=== PATIENT | female | born 1995 | race Caucasian/White ===

== ENCOUNTER → 2018-04-07 | Outpatient (CLI) | payer BC ==
[2018-04-07 10:22] LABS: BASO % 0.6 % (0.0-2.0); EOS # 0.1 (0.0-0.7); EOS % 1.6 % (0-4.0); GRAN # 4.3 (1.4-6.5); GRAN % 63.4 % (42.2-75.2); HEMATOCRIT 39.3 % (35.0-45.0); HEMOGLOBIN 13.9 g/dl (12.0-15.0); LYMPH # 1.8 (1.2-3.4); LYMPH % 26.8 % (20.0-51.0); MEAN CELL VOLUME 82 fl (80.0-95.0); MEAN CORPUSCULAR HEMOGLOBIN 29 pg (26.0-32.0); MEAN CORPUSCULAR HGB CONC 35 g/dl (33.0-37.0); MEAN PLATELET VOLUME 10.1 fl (7.4-10.4); MONO # 0.5 (0.1-0.6); MONO % 7.3 % (1.7-9.3); PLATELET COUNT 267 K/mm3 (130-400); RED BLOOD COUNT 4.82 M/mm3 (4.10-5.30)
[2018-04-07 10:33] LABS: ALBUMIN 4.2 gm/dL (3.5-5.0); BILIRUBIN,TOTAL 0.6 mg/dL (0.0-1.0); CALCIUM 9.6 mg/dL (8.4-10.2); CREATININE, serum 0.93 mg/dL (0.52-1.25); POTASSIUM 4.2 mmol/L (3.4-5.0); TOTAL PROTEIN 8.2 gm/dL (6.4-8.2)
== END ==
LOC: COL.LAB 09:29
DX: Z01.812 Encounter for preprocedural laboratory examination (principal); M67.40 Ganglion, unspecified site

== ENCOUNTER 2023-02-04 20:05 | Outpatient (CLI) | payer BC ==
[~2023-02-04] VITALS: Ht 167.6 cm; Wt 100.9 kg
--- NOTE | 2023-02-04 20:10 | NUR ---
G1L0. 39.6. Ambulatory to LDR 3 with spouse. Clean gown on. EFM and TOCO explained and applied. Pt states she has a gush of clear fluid around 1600 today and has had some leaking since but has not filled a pad. Denies contractions or vaginal bleeding. Reports good movement. Plan of care explained. 2019: SVE 2/80/-2, Bulgy bag noted on exam. Amniotrace X2 negative. Clear discharge noted. [place] pad applied. 2054: No fluid noted to pink pad. Amniotrace negative. 2099: called and notified of pt's status. See physican notification. Discharge orders received. 2119: Discharge orders explained. Questions answered. Pt ambualtory off unit and home with spouse.
[2023-02-04] MEDS ORDERED: PROTONIX20 MG PO (20:26)
[2023-02-04 20:35] VITALS: BP 126/90; PULSE 74
[2023-02-04 20:45] VITALS: BP 141/93; PULSE 67; TEMP 98.6
[2023-02-04 21:01] VITALS: BP 130/90; PULSE 68
== END 2023-02-04 21:20 | disposition home or self-care (01) ==
LOC: LDRO 20:05
DX: Z34.93 Encounter for supervision of normal pregnancy, unspecified, third trimester (principal); Z3A.39 39 weeks gestation of pregnancy

== ENCOUNTER 2023-02-06 01:22 | Inpatient (IN) | payer BC ==
[2023-02-06] VITALS (21 sets, daily range): BP systolic 114–141; BP diastolic 58–91; PULSE 64–93; TEMP 97.7–98.4
[~2023-02-06] VITALS: Ht 167.6 cm; Wt 101.0 kg
[~2023-02-06 01:22] MED LIST: PROTONIX20 MG PO
--- NOTE | 2023-02-06 01:30 | NUR ---
PT TO UNIT AMBULATORY WITH SPOUSE WITH COMPLAINTS OF CTX. PT ORIENTED TO UNIT, CHANGED INTO GOWN. EFMX2 APPLIED, VS OBTAINED, SVE PERFORMED.
[2023-02-06 02:11] LABS: BASO # 0.1 K/mm3 (0.0-0.2); BASO % 0.3 % (0.0-2.0); EOS # 0.1 K/mm3 (0.0-0.7); EOS % 0.8 % (0.0-4.0); GRAN # 12.2 K/mm3 (1.4-6.5); HEMATOCRIT 37.5 % (37.0-47.0); HEMOGLOBIN 12.7 g/dl (12.5-16.0); LYMPH # 2.6 K/mm3 (1.2-3.4); LYMPH % 16.1 % (20.0-51.0); MEAN CELL VOLUME 80 fl (80.0-100.0); MEAN CORPUSCULAR HEMOGLOBIN 27 pg (27-31); MEAN CORPUSCULAR HGB CONC 34 g/dl (33.0-37.0); MEAN PLATELET VOLUME 10.6 fl (7.4-10.4); MONO % 6.4 % (1.7-9.3); PLATELET COUNT 269 K/mm3 (130-400); RED BLOOD COUNT 4.71 M/mm3 (4.10-5.30); REDCELL DISTRIBUTION WIDTH-CV 13.9 % (11.5-14.5)
--- NOTE | 2023-02-06 02:31 | NUR ---
Prolonged late deceleration noted lasting 160 seconds. Pt repostioned to left lateral with spontaneous return to baseline. 0245: Pt repositioned to [facility]. 0246: FHR deceleration noted down to 60bpm lasting 110 seconds. Pt repostioned back to left lateral with spontaneous return to baseline. Peanut ball placed. 0403: Educated pt on pushing with contractions with this RN and spouse at bedside. 0452: called for delivery. 0455: at bedside for delivery. Pt repostioned into footplates and prepped for vaginal delivery. Pt begins pushing with provider. 0504: Spontaneouse delivery of infant's head by . Tight nuchal cord noted. Cord clamped X2 and cut by provider. 0505: Spontaneous delivery of vaible male by . to mother's chest where dried and stimulated by nursery RN. Cord Clamped X2 and cut by FOB. Care of infant assummed by Yojana FAULKNER. 0517: Spontaneous delivery of intact placenta by . Pitocin started at 333mus/hr per protocol. Second degree perineal laceration repaired by provider. Straight catherization completed. Fundal message completed. Pericare provided and pt repositioned in bed. Plan of care and safety precautions explains. Call light within reach.
[2023-02-06] MEDS ORDERED: PRENATAL TABLET PO (07:44)
[2023-02-06] MEDS ORDERED: TYLENOL 500MG500 MG PO (07:46)
[2023-02-07 00:45] VITALS: BP 112/70; PULSE 72; TEMP 98
[2023-02-07] MEDS ORDERED: IBU800 M1 PO (08:20)
--- NOTE | 2023-02-07 08:30 | NUR ---
UPON ASSESSMENT FUNDUS AT UMBILICUS AND TO THE RIGHT. THIS NURSE ENCOURAGED PATIENT TO AMBULATE AND VOID FREQUENTLY. PATIENT AGREED.
[2023-02-07 08:35] VITALS: BP 123/79; PULSE 75; TEMP 97.9
--- NOTE | 2023-02-07 09:52 | NUR ---
Initial visit; Parents thanked Dental Practitioner for offering congratulations and God's blessings for the of their son. Dental Practitioner thanked family for choosing [facility].
--- NOTE | 2023-02-07 10:02 | NUR ---
THIS NURSE ASSITED WITH LATCH AND APPLIED NIPPLE SHIELD. DID WELL WITH NIPPLE SHIELD AND PT WILL CALL IF NEEDING MORE ASSISTANCE.
== END 2023-02-07 14:00 | disposition home or self-care (01) | DRG 807 ==
LOC: LDRO 01:22 → LDR 02:01 → OB 02:01
PROVIDERS: ADMIT Obstetrics & Gynecology
PROC: 10E0XZZ Delivery of Products of Conception, External Approach (ICD-10-PCS; principal; 2023-02-06)
PROC: 0KQM0ZZ Repair Perineum Muscle, Open Approach (ICD-10-PCS; 2023-02-06)
DX: O48.0 Post-term pregnancy (principal); Z37.0 Single live birth; Z3A.40 40 weeks gestation of pregnancy; O70.1 Second degree perineal laceration during delivery; O69.81X0 Labor and delivery complicated by cord around neck, without compression, not applicable or unspecified
CPT/HCPCS: J2590; J2795; J7120